=== PATIENT | male | born 1960 | race Caucasian/White ===

== ENCOUNTER → 2016-11-02 | Outpatient (CLI) | payer OTHER | LOC: RAD 13:15 | DX: M54.5 Low back pain (principal); M47.816 Spondylosis without myelopathy or radiculopathy, lumbar region | CPT/HCPCS: 72110 ==

== ENCOUNTER → 2021-04-08 | Outpatient (CLI) | payer OTHER ==
[~2021-04-08] MED LIST: AMARYL4 MG PO; BACTRIM DS TAB1 EACH PO; CHROMIUM PICO200 MCG PO; CINNAMON500 MG PO; CLARITIN10 MG PO; COZAAR25 MG PO; ECOTRIN81 MG PO; ELAVIL 10 MG TA10 MG PO; LOVAZA1 GM PO; MOBIC15 MG PO; NEXIUM20 MG PO; NITROSTAT0.4 MG SL; PRAVACHOL20 MG PO; ROBAXIN-750750 MG PO; ULTRAM50 MG PO; VITAMIN D350000 UNIT PO
== END ==
LOC: NM 09:00
DX: R11.10 Vomiting, unspecified (principal)
CPT/HCPCS: 78264; A9541